=== PATIENT | female | born 1970 | race African-American/Black ===

== ENCOUNTER 2019-12-02 21:19 | Emergency (ER) | payer OTHER ==
[~2019-12-02] VITALS: Ht 167.6 cm; Wt 127.0 kg
[2019-12-02] MEDS ORDERED: PRINIVIL20 M1 PO (21:45)
[2019-12-02] MEDS ORDERED: HYDROCHLOROTHIA25 M2 PO (21:45)
[2019-12-02] MEDS ORDERED: MELOXICAM7.5 MG PO (21:46)
[2019-12-02] MEDS ORDERED: NEURONTIN100 MG PO (21:47)
[2019-12-02] MEDS ORDERED: WELLBUTRIN 75 M75 M1 PO (21:47)
[2019-12-02] MEDS ORDERED: NAPROSYN500 M1 PO (21:48)
[2019-12-02 22:09] LABS: URINE BILIRUBIN NEGATIVE (Negative); URINE BLOOD 3+ (Negative); URINE CLARITY TURBID; URINE COLOR RED; URINE GLUCOSE-RANDOM* NEGATIVE (Negative); URINE KETONES TRACE (Negative); URINE LEUKOCYTES-REFLEX 1+ (Negative); URINE NITRITE-REFLEX POSITIVE (Negative); URINE PROTEIN (DIPSTICK) 3+ (Negative); URINE SPECIFIC GRAVITY >= 1.030 (1.005-1.035)
[2019-12-02 22:21] LABS: ABSOLUTE NEUTROPHILS 3.7 thou/uL (1.4-8.2); BASOPHILS 0.5 % (0.0-2.0); EOSINOPHILS 1.1 % (0.0-3.0); HEMATOCRIT 42.2 % (37.0-47.0); HEMOGLOBIN 13.5 gm/dL (12.0-15.0); LYMPHOCYTES 30.4 % (24.0-44.0); MCV 87.5 fL (80.0-100.0); MONOCYTES 9.7 % (1.0-8.0); PLATELET COUNT 218 thou/uL (150-400); POLYS 58.3 % (36.0-66.0); RBC 4.82 mil/uL (4.20-5.00); RDW 16.3 % (10.5-14.5); WBC 6.3 thou/uL (4.0-11.0)
[2019-12-02 22:25] LABS: SQUAMOUS 0-3 Few /LPF (0-3); URINE RBC >20 Many /HPF (0-2); URINE WBC-REFLEX 6-15 Few /HPF (0-5)
[2019-12-02 22:26] LABS: BACTERIA-REFLEX 1-9 Few /HPF (None Seen); CASTS None Seen /LPF (None Seen); CRYSTALS None Seen /LPF (None Seen)
[2019-12-02 22:38] LABS: ANION GAP 14 mmol/L (7-16); BUN 13 mg/dL (7-18); CALCIUM 8.6 mg/dL (8.5-10.1); CHLORIDE 100 mmol/L (98-107); CO2 23 mmol/L (21-32); CREATININE 1.1 mg/dL (0.6-1.0); GLUCOSE 112 mg/dL (74-106); POTASSIUM 3.2 mmol/L (3.5-5.1); SODIUM 137 mmol/L (136-145)
[2019-12-02 22:49] LABS: ALBUMIN 3.9 g/dL (3.4-5.0); LIPASE 282 U/L (73-393); MAGNESIUM 2.1 mg/dL (1.8-2.4); SGOT 33 U/L (15-37); SGPT 37 U/L (30-65); TOTAL BILIRUBIN 0.5 mg/dL (<0.1-1.0); TOTAL PROTEIN 8.1 g/dL (6.4-8.2); TROPONIN-I <0.06 ng/mL (<0.06)
[2019-12-03] MEDS ORDERED: CEFUROXIME500 MG PO (00:24)
[2019-12-03 01:02] VITALS: BP 126/77
[2019-12-03] MEDS ORDERED: DIFLUCAN150 MG PO (01:15)
== END 2019-12-03 01:24 | disposition home or self-care (01) ==
LOC: ER 21:19
PROVIDERS: Emergency Medicine Emergency Medical Services
DX: K52.9 Noninfective gastroenteritis and colitis, unspecified (principal); N39.0 Urinary tract infection, site not specified; E87.6 Hypokalemia; R19.7 Diarrhea, unspecified; I10 Essential (primary) hypertension